=== PATIENT | male | born 1960 | race Caucasian/White ===

== ENCOUNTER 2016-06-13 19:35 | Emergency (ER) | payer BC ==
[2015-02-15 07:50] VITALS: BMI 26.2
[~2016-06-13 19:35] MED LIST: ASPIRIN325 MG PO; COREG12.5 MG PO; FISH OIL 1,0001 CA1 PO; LIPITOR40 MG PO; NIASPAN1000 MG PO; PLAVIX75 MG PO; VITAMIN D31000 UNIT PO; ZESTRIL10 MG PO
== END 2016-06-13 22:24 | disposition home or self-care (01) ==
LOC: D.ER 19:35
DX: S49.92XA Unspecified injury of left shoulder and upper arm, initial encounter (principal); X58.XXXA Exposure to other specified factors, initial encounter; Y93.89 Activity, other specified; Y92.019 Unspecified place in single-family (private) house as the place of occurrence of the external cause; I10 Essential (primary) hypertension

== ENCOUNTER 2017-10-19 09:41 | Emergency (ER) | payer BC ==
[~2017-10-19] VITALS: Ht 172.7 cm; Wt 77.3 kg
--- NOTE | ~2017-10-19 | CN ---
PATIENT NAME:ALLY JACINTO MEDICAL RECORD: [id number] : 58 LOCATION:.ER ADMIT DATE: ACCOUNT: [id number] CONSULTING PHYSICIAN: YAZMIN HE MD REFERRING PHYSICIAN: MALLORY MCCLENDON MD DATE OF CONSULTATION: 10/19/2017 ADMITTING DIAGNOSES: 1. Chest pain. 2. Abnormal ECG. 3. Coronary artery disease. 4. Previous PTCA stent. 5. Hypertension. 6. Hyperlipidemia. 7. Bronchitis. HISTORY OF PRESENT ILLNESS: Mr. Jacinto had 2 days of cough. He developed chest pain today, but the chest pain was only when he took a deep breath. It was not like that of his previous angina. He does have extensive cardiac history, status post PTCA stent multivessel disease. PHYSICAL EXAMINATION: GENERAL APPEARANCE: Well-nourished, well-developed, appears stated age. Level of distress, comfortable. PSYCHIATRIC: Mental status, alert, normal affect. Orientation, oriented to time, place and person. EYES: Lids and conjunctiva, noninjected. No discharge, no pallor. ENT: Lips, teeth, gums, normal dentition. Oropharynx, no cyanosis, no pallor. NECK: Carotid arteries, bilateral normal upstroke, no bruits, no thrills. JUGULAR VEINS: No jugular venous pressure or distention. CERVICAL LYMPH NODES: Nontender, nonenlarged. THYROID: Not enlarged. Nontender. No nodules. LUNGS: Respiratory effort, unlabored. CHEST: Normal curvature. No thoracic deformity. No chest wall tenderness. Percussion, resonant. Auscultation, clear. No wheezes, no rales, no rhonchi. CARDIOVASCULAR: Precordial exam, nondisplaced. No heaves or pericardial thrills. Rate and rhythm, regular. Heart sounds, normal S1, normal S2. No S3, no gallop, no rub. Systolic murmur, not heard. Diastolic murmur, not heard. EXTREMITIES: No cyanosis, no edema. Peripheral pulses, full and equal in all extremities, except as noted. No bruits appreciated. ABDOMEN: Soft, nondistended. Normal aorta. No bruit. Nontender. No masses. Liver, nontender, no hepatomegaly. Spleen, nontender, no splenomegaly. MUSCULOSKELETAL: No joint tenderness. No joint swelling. No erythema. NEUROLOGICAL: Normal gait, normal strength, normal tone. SKIN: Warm and dry. His EKG is abnormal; however, unchanged from previous EKGs. OVERALL IMPRESSION: Chest pain, atypical for cardiac angina, not like that of his old angina and only present when he takes an inspiration. Most likely this is bronchitis. Chest x-ray is not compatible with pneumonia. He is allergic to PENICILLIN. We will treat him with Zithromax. If troponins are normal, we can discharge home. TRANSINT:[id number] Voice Confirmation ID: [id number] DOCUMENT ID: [id number] CONSULT REPORT [id number] ALLY JACINTO, YAZMIN MESSINA at 1713 CC: [id number] DICTATION DATE: 10/19/17 1009 [employer]: 10/19/17 1059 DEP ER 10/19/17 [facility] [address] [place] [address]
[2017-10-19 09:45] VITALS: Ht 172.7 cm; Wt 77.3 kg
[2017-10-19 10:08] LABS: BASOPHILS 0.2 % (0-2); EOSINOPHILS 0.8 % (0-7); HEMATOCRIT 42.1 % (42.0-54.0); HEMOGLOBIN 14.6 g/dL (13.5-17.5); IMMATURE GRANULOCYTES 0.3 % (0-5); LYMPHOCYTES 16.3 % (15-50); MCH 32.4 pg (26.0-34.0); MCHC 34.7 g/dL (31.0-37.0); MCV 93.6 fL (80.0-100.0); MEAN PLATELET VOLUME 9.8 fL (7.4-10.4); MONOCYTES 6.9 % (2-11); NEUTROPHILS 75.5 % (40-80); PLATELET COUNT 237 10x3/uL (130-400); RDW 12.4 % (11.5-14.5); WBC 10.1 10x3/uL (4.8-10.8)
[2017-10-19 10:31] LABS: ALBUMIN 4.1 g/dL (3.4-5.0); ALKALINE PHOSPHATASE 82 U/L (46-116); ALT (SGPT) 38 U/L (10-68); BILIRUBIN - TOTAL 0.26 mg/dL (0.2-1.3); CALC OSMOLALITY 280 mosm/kg (275-300); CALCIUM 9.1 mg/dL (8.5-10.1); CARBON DIOXIDE 28.1 mmol/L (21.0-32.0); CHLORIDE - SERUM 102 mmol/L (98-107); CREATININE - SERUM 0.9 mg/dL (0.6-1.3); GLUCOSE 155 mg/dL (74-106); SODIUM 138 mmol/L (136-145); UREA NITROGEN 19 mg/dL (7-18); eGFR NON AFRICAN AMERICAN > 90 mL/min (90-120)
[2017-10-19 10:42] LABS: CKMB 1.4 U/L (0.0-3.6); TROPONIN-I < 0.017 ng/mL (0.000-0.060)
[2017-10-19 14:22] VITALS: BP 110/69
== END 2017-10-19 14:22 | disposition home or self-care (01) ==
LOC: D.ER 09:41
PROVIDERS: Family Medicine
DX: R07.9 Chest pain, unspecified (principal); J20.9 Acute bronchitis, unspecified; R05 Cough; I10 Essential (primary) hypertension